=== PATIENT | male | born 1945 | race Caucasian/White ===

== ENCOUNTER 2024-11-14 12:25 | Emergency (ER) | payer MEDICARE, SELFPAY ==
[2024-11-14 12:27] VITALS: BMI 28.8
[2024-11-14 12:31] VITALS: BP 186/97; PULSE 73; RESP 18; TEMP 36.6; O2SAT 95
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
[2024-11-14] MEDS: DIPHTH,PERTUSS(ACELL),TET VAC 0.5 ML SYR IMi (12:53)
[2024-11-14] MEDS: LIDOCAINE HCL 1% 20 ML VIAL INFL (12:53)
== END 2024-11-14 13:40 | disposition home or self-care (01) ==
LOC: SERX 13:51
PROVIDERS: Emergency Provider Emergency Medicine; PCP Internal Medicine
DX: S61.210A Laceration without foreign body of right index finger without damage to nail, initial encounter (principal); W55.03XA Scratched by cat, initial encounter; Z23 Encounter for immunization
CPT/HCPCS: 12001; 90471; 90715; 99283; J3490